=== PATIENT | female | born 1965 | race Caucasian/White ===

== ENCOUNTER 2017-04-10 07:25 | Emergency (ER) | payer BC ==
[2017-04-10 07:32] VITALS: BP 124/75
--- NOTE | 2017-04-10 07:41 | UC ---
Throat Pain/Nasal Isaiah HPI - HPI Summary HPI Summary: 52 yo female with sore throat for 2-3 days no f/c some myalgias pain R>L no trouble handling oral secretions no URI symptoms - History of Current Complaint Chief Complaint: UCGeneralIllness Stated Complaint: SORE THROAT Time Seen by Provider: 04/10/17 07:35 Hx Obtained From: Patient Hx Last Menstrual Period: 01/2017 Onset/Duration: Gradual Onset, Lasting Days Severity: Moderate Pain Intensity: 7 - DECLINES ANALGESIC Pain Scale Used: 0-10 Numeric Cough: None - Epiglottits Risk Factors Epiglottis Risk Factors: Negative - Allergies/Home Medications Allergies/Adverse Reactions: Allergies Allergy/AdvReac Type Severity Reaction Status Date / Time No Known Allergies Allergy Verified 04/10/17 07:32 Home Medications: Home Medications Probiotic Product [Probiotic] 1 tab PO DAILY 04/10/17 [History Confirmed ] PMH/Surg Hx/FS Hx/Imm Hx Previously Healthy: Yes - Surgical History Surgical History: Yes Surgery Procedure, Year, and Place: LT WRIST SURGERY. RT ANKLE SURGEY. 02/24 [place] [facility] [place] [facility] [place] - Family History Known Family History: Positive: Cardiac Disease, Hypertension - Social History Alcohol Use: Weekly Substance Use Type: None Smoking Status (MU): Never Smoked Tobacco - Immunization History Most Recent Influenza Vaccination: Not UTD Most Recent Tetanus Shot: UTD Review of Systems Constitutional: Negative Skin: Negative Eyes: Negative ENT: Sore Throat Respiratory: Negative Cardiovascular: Negative Gastrointestinal: Negative Genitourinary: Negative Motor: Negative Neurovascular: Negative Musculoskeletal: Negative Neurological: Negative Psychological: Negative Is Patient Immunocompromised?: No All Other Systems Reviewed And Are Negative: Yes Physical Exam Triage Information Reviewed: Yes Appearance: Well-Appearing, No Pain Distress, Well-Nourished Vital Signs: Initial Vital Signs Temp 97.6 F 04/10/17 07:26 Pulse 55 04/10/17 07:26 Resp 16 04/10/17 07:26 BP 124/75 04/10/17 07:26 Pulse Ox 100 04/10/17 07:26 Vital Signs Reviewed: Yes Eyes: Positive: Conjunctiva Clear ENT: Positive: Hearing grossly normal, Pharyngeal erythema, TMs normal - left OK , right unable to vis due to cerumen, Uvula midline. Negative: Nasal congestion , Nasal drainage, Tonsillar swelling, Tonsillar exudate, Trismus, Muffled voice , Hoarse voice, Dental tenderness, Sinus tenderness Neck: Positive: Supple, Nontender, Enlarged Nodes @ - Right ant cerv Respiratory: Positive: Lungs clear, Normal breath sounds, No respiratory distress, No accessory muscle use Cardiovascular: Positive: RRR, No Murmur Musculoskeletal: Positive: ROM Intact, No Edema Neurological: Positive: Alert Psychological Exam: Normal Skin Exam: Normal Throat Pain/Nasal Course/Dx - Course Course Of Treatment: strep (-) - Differential Dx/Diagnosis Provider Diagnoses: acute pharyngitis Discharge - Discharge Plan Condition: Stable Disposition: HOME Prescriptions: Amoxicillin PO (*) [Amoxicillin 875 MG (*)] 875 mg PO BID #20 tab Fluconazole 150 MG (NF) [Diflucan 150 mg (NF)] 150 mg PO ONCE #1 tab Patient Education Materials: Pharyngitis (ED) Referrals: Chicho Liao MD [Primary Care Provider] - Additional Instructions: recheck in 2-3 days if not better
== END 2017-04-10 08:07 | disposition home or self-care (01) ==
LOC: UCEAST 07:25
DX: J02.9 Acute pharyngitis, unspecified (principal)
CPT/HCPCS: 87651; 99212; G0463

== ENCOUNTER 2018-06-03 08:04 | Emergency (ER) | payer BC ==
[2018-06-03 08:15] VITALS: BP 131/80
--- NOTE | 2018-06-03 08:24 | ED ---
Respiratory - HPI Summary HPI Summary: Patient is 53 year old woman , who present today to the urgent care with sore throat for past 5 days. She reports that was on a plane , traveling back from [place] on May 23 and thinks she picked up something from the flight. She noticed some symptoms 2 days later after her travel and progressed but it has been worse for past 5 days No skin rash. She denies any fever and chills but she takes ibuprofen on a daily basis for her hip pain so not sure if she had any fever. Denies any cough , chest pain or shortness of breath .Denies any abdominal pain , nausea or vomiting , diarrhea or constipation. - History of Current Complaint Chief Complaint: UCRespiratory Stated Complaint: THROAT Time Seen by Provider: 06/03/18 08:09 Hx Obtained From: Patient Pain Intensity: 8 - Allergy/Home Medications Allergies/Adverse Reactions: Allergies Allergy/AdvReac Type Severity Reaction Status Date / Time No Known Allergies Allergy Verified 06/03/18 08:15 PMH/Surg Hx/FS Hx/Imm Hx Previously Healthy: Yes Endocrine/Hematology History: Denies: Hx Diabetes Cardiovascular History: Denies: Hx Hypertension, Hx Pacemaker/ICD History: Denies: Hx Renal Disease Musculoskeletal History: Denies: Hx Rheumatoid Arthritis, Hx Osteoporosis Sensory History: Denies: Hx Hearing Aid Psychiatric History: Reports: Hx Anxiety Denies: Hx Panic Disorder - Surgical History Surgery Procedure, Year, and Place: LT WRIST SURGERY. RT ANKLE SURGEY. [place] [facility] [place] [facility] [place]ious Disease History: No Infectious Disease History: Reports: Traveled Outside the [place] in Last 30 Days - juan pablo Denies: History Other Infectious Disease - Family History Known Family History: Positive: Cardiac Disease, Hypertension - Social History Alcohol Use: Weekly Substance Use Type: Reports: None Smoking Status (MU): Never Smoked Tobacco Review of Systems Constitutional: Negative Eyes: Negative Positive: Sore Throat Cardiovascular: Negative Respiratory: Negative Negative: Cough Gastrointestinal: Negative Genitourinary: Negative Musculoskeletal: Negative Skin: Negative Neurological: Negative Psychological: Normal All Other Systems Reviewed And Are Negative: Yes Physical Exam - Summary Physical Exam Summary: Physical Exam: Const: Appears well. No signs of apparent distress present. Alert and oriented x 3. Musculo: Walks with a normal gait. Head/Face: Atraumatic, normocephalic on inspection. Eyes: EOMI and PERRLA in both eyes. Conjunctivae clear. No discharge noted ENT: Hearing normal, TM not visualized bilaterally, wax impacted. Pharyngeal erythema noted, exudate noted on the right tonsil No significant cervical lymphadenopathy Respiratory: Respirations are unlabored. Lungs clear to auscultation bilaterally, no wheezing , rhonchi or rales noted . CVS: Regular rate and Rhythm, S1S2 normal , no murmurs identified. Extremities: Peripheral circulation is grossly normal. Pulses 2+ Abdomen : Soft non tender , nondistended , Bowel sounds present . No guarding , rebound tenderness or rigidity noted. Skin: No lesions or rash located on the upper extremities or on the lower extremities. Neuro: Cranial nerves II to XII intact, motor and sensory intact. DTR Intact bilaterally. Mood is normal. Affect is normal. Triage Information Reviewed: Yes Vital Signs On Initial Exam: Initial Vitals Temp Pulse Resp BP Pulse Ox 98.0 F 63 18 131/80 100 06/03/18 08:08 06/03/18 08:08 06/03/18 08:08 06/03/18 08:08 06/03/18 08:08 Vital Signs Reviewed: Yes Diagnostics - Vital Signs Vital Signs Temp Pulse Resp BP Pulse Ox 06/03/18 08:08 98.0 F 63 18 131/80 100 - Laboratory Lab Statement: Any lab studies that have been ordered have been reviewed, and results considered in the medical decision making process. Disposition - Course Course Of Treatment: During the visit today, we obtained a rapid strep test which was negative. She likely has a viral upper respiratory infection. We discussed the findings and further plan. Likely to get better on its own but I will prescribe the antibiotic to the pharmacy , to be filled if she has no improvement over next 2-3 days. Patient expressed understanding . - Diagnoses Provider Diagnoses: Viral URI Discharge - Sign-Out/Discharge Documenting (check all that apply): Patient Departure All imaging exams completed and their final reports reviewed: No Studies - Discharge Plan Condition: Stable Disposition: HOME Prescriptions: Amoxicillin PO (*) [Amoxicillin 500 MG CAP*] 500 mg PO BID 10 Days #20 cap Patient Education Materials: Viral Syndrome (ED) Referrals: Chicho Liao MD [Primary Care Provider] - 1 Week Additional Instructions: Please start taking the medication as prescribed to the pharmacy if no improvement over the next 2 days . Salt water gargles and lozenges will be helpful Keep yourself hydrated Follow up with your primary care doctor in 1 week Patients blood pressure slightly high in Urgent care today , plan follow up with PCP for better control Return to Urgent care / ER if symptoms get worse. - Billing Disposition and Condition Condition: STABLE Disposition: Home
== END 2018-06-03 08:59 | disposition home or self-care (01) ==
LOC: UCEAST 08:04
DX: J06.9 Acute upper respiratory infection, unspecified (principal)
CPT/HCPCS: 87651; 99212; G0463